=== PATIENT | female | born 1975 | race African-American/Black ===

== ENCOUNTER 2017-07-17 14:47 | Emergency (ER) | payer SELFPAY ==
--- NOTE | 2017-07-17 15:46 | RAD ---
AP VIEW CHEST: INDICATIONS: Flu-like symptoms. COMPARISON: 03/09/2016 FINDINGS: There is mid cardiomegaly. No focal consolidation or pleural effusion is noted. No pneumothorax is demonstrated. No acute osseous abnormality is evident. IMPRESSION: Mild cardiomegaly. The extent of the cardiomegaly appears similar to the comparison examination, whe n taking into account slight differences in technique. POS: [facility]
== END 2017-07-17 15:59 | disposition home or self-care (01) ==
LOC: ERS 14:47
DX: J06.9 Acute upper respiratory infection, unspecified (principal); I10 Essential (primary) hypertension; F17.210 Nicotine dependence, cigarettes, uncomplicated; Z79.899 Other long term (current) drug therapy
CPT/HCPCS: 71045; 87804

== ENCOUNTER 2017-07-18 01:38 | Inpatient (IN) | payer SELFPAY ==
[2017-07-18] MEDS ORDERED: predniSONE 20 MG TAB ONE (03:40)
[2017-07-18 04:46] LABS: #Eosinphils 0.2 thou/uL (0.0-0.7); #Lymphocytes 0.9 thou/uL (1.20-3.40); #Monocytes 0.4 thou/uL (0.11-0.59); #Neutrophils 5.5 thou/uL (1.40-6.50); %Basophils 0.6 % (0.0-1.0); %Eosinophils 2.8 % (0.0-10.0); %Lymphocytes 12.9 % (21.0-51.0); %Neutrophils 77.7 % (42.0-75.0); Mean Corpuscular HGB CONC 33.2 g/dL (32.0-36.0); Mean Corpuscular Hemoglobin 28.2 pg (27.0-31.0); Mean Corpuscular Volume 85.1 fl (81.0-99.0); Mean Platelet Volume 7.5 fL (7.4-10.4); Platelet Count 337 thou/uL (130-400); RBC Distribution Width 14.9 % (11.5-14.5); Red Blood Cell (RBC) Count 3.89 mill/uL (4.20-5.40); White Blood Cell (WBC) Count 7.1 thou/uL (4.8-10.8)
[2017-07-18 05:03] LABS: ALT (SGPT) 19 U/L (8-55); AST (SGOT) 18 U/L (5-34); Albumin 3.9 g/dL (3.5-5.0); Alkaline Phosphatase 71 U/L (40-150); Anion Gap 13 mmol/L (10-20); BUN (Urea Nitrogen) 14 mg/dL (7.0-18.7); Bilirubin, Total 0.3 mg/dL (0.2-1.2); Calc. Creatinine Clearance 0 mL/min (70-130); Calcium 8.6 mg/dL (7.8-10.44); Carbon Dioxide 21 mmol/L (22-29); Chloride 105 mmol/L (98-107); Estimated GFR-MDRD Greater than 90; Globulin 3.5 g/dL (2.4-3.5); Glucose 114 mg/dL (70-105); Potassium 3.4 mmol/L (3.5-5.1); Protein, Total 7.4 g/dL (6.0-8.3); Sodium 136 mmol/L (136-145)
[2017-07-18 06:00] VITALS: BMI 28.3
[2017-07-18] MEDS ORDERED: Acetaminophen 325 MG TAB PO PRN ×2 (06:17→12:04)
[2017-07-18] MEDS ORDERED: Ondansetron ODT 4 MG TAB SL PRN (06:17)
[2017-07-18] MEDS ORDERED: Ondansetron HCl/PF 4 MG/2 ML Vial IVP PRN (06:17)
[2017-07-18] MEDS ORDERED: Potassium Chloride 20 MEQ TAB PO SCH (10:00)
[2017-07-18] MEDS ORDERED: hydrALAZINE 20 MG/ML VIAL SLOW IVP PRN (10:32)
[2017-07-18] MEDS ORDERED: Lisinopril 10 MG TAB PO SCH (10:45)
[2017-07-18] MEDS ORDERED: methylPREDNISolone Sod Succ/PF 125 MG/2 ML VIAL IVP SCH (12:00)
[2017-07-18] MEDS ORDERED: cefTRIAXone\\ROCEPHIN 1 GM in Sodium Chloride 0.9% 100 ML IVPB SCH (12:15)
[2017-07-18] MEDS ORDERED: Calcium Carbonate 500 MG ChewTAB PO PRN (12:19)
[2017-07-18] MEDS ORDERED: Milk Of Magnesia 30 ML UDCUP PO PRN (12:19)
[2017-07-18] MEDS ORDERED: Senokot 8.6 MG TAB PO PRN (12:19)
[2017-07-18] MEDS: cefTRIAXone\\ROCEPHIN 1 GM, Syringe 0.4 ML in Sterile Water 9.6 ML SLOW IVP SCH (13:46)
[2017-07-18] MEDS: Azithromycin 500 MG in Sodium Chloride 0.9% 250 ML 250 ML IVPB SCH (13:46)
[2017-07-18] MEDS: Ibuprofen 200 MG TAB PO PRN ×2 (14:50→20:14)
[2017-07-18] MEDS: predniSONE 20 MG TAB PO SCH (17:25)
[2017-07-18] MEDS: Acetaminophen 325 MG TAB PO PRN (17:25)
--- NOTE | 2017-07-18 17:37 | PDOC.PN ---
- Subjective Encounter Start Date: 07/18/17 Encounter Start Time: 11:00 Patient seen and examined. Note dictated. - Objective Resuscitation Status: Resuscitation Status FULL:Full Resuscitation MAR Reviewed: Yes Vital Signs & Weight: Vital Signs (12 hours) Temp Pulse Resp BP Pulse Ox 07/18/17 16:23 98.0 F 84 16 149/88 H 92 L 07/18/17 11:12 98.2 F 85 18 147/95 H 94 L 07/18/17 09:40 79 14 96 07/18/17 08:00 98.0 F 79 14 92 L 07/18/17 07:16 98.0 F 79 18 152/95 H 92 L 07/18/17 06:40 84 16 95 07/18/17 05:45 97.8 F 82 22 H 153/97 H 93 L Weight Weight 170 lb Result Diagrams: 07/18/17 04:27 07/18/17 04:27 Radiology Reviewed by me: Yes (?Basilar infiltrate) Phys Exam - Physical Examination Intermittent coughing spell HEENT: PERRLA, moist MMs, sclera anicteric Neck: no nodes, no JVD, supple Respiratory: wheezing present Scat rhonchi/rales at bases, Some accessory muscle use Cardiovascular: RRR, no rub S1S2 +, No heaves/pulsations Gastrointestinal: soft, non-tender, no distention, positive bowel sounds Musculoskeletal: no edema, pulses present Neurological: non-focal, normal sensation, moves all 4 limbs Psychiatric: normal affect, A&O x 3 Skin: no rash Dx/Plan - Plan * . Review of Systems - Review of Systems Constitutional: fever. negative: chills, sweats, weakness, malaise, other Eyes: negative: Pain, Vision Change, Conjunctivae Inflammation, Eyelid Inflammation, Redness, Other ENT: Nose Congestion. negative: Ear Pain, Ear Discharge, Nose Pain, Nose Discharge, Mouth Pain, Mouth Swelling, Throat Pain, Throat Swelling, Other Respiratory: Cough, Dry, Shortness of Breath, SOB with Excertion, Sputum, Wheezing. negative: Hemoptysis, Pleuritic Pain Cardiovascular: negative: chest pain, palpitations, orthopnea, paroxysmal nocturnal dyspnea, edema, light headedness, other Gastrointestinal: negative: Nausea, Vomiting, Abdominal Pain, Diarrhea, Constipation, Melena, Hematochezia, Other Genitourinary: negative: Dysuria, Frequency, Incontinence, Hematuria, Retention , Other Musculoskeletal: negative: Neck Pain, Shoulder Pain, Arm Pain, Back Pain, Hand Pain, Leg Pain, Foot Pain, Other Skin: negative: Rash, Lesions, Eduardo, Bruising, Other Neurological: negative: Weakness, Numbness, Incoordination, Change in Speech, Confusion, Seizures, Other - Medications/Allergies Allergies/Adverse Reactions: Allergies Allergy/AdvReac Type Severity Reaction Status Date / Time No Known Allergies Allergy Unverified 07/18/17 05:58 Medications: Current Medications Acetaminophen (Tylenol) 650 mg PO Q4H PRN PRN Reason: Headache/Fever or Mild Pain Last Admin: 07/18/17 17:25 Dose: 650 mg Albuterol/Ipratropium (Duoneb) 3 ml NEB [id number] [facility] Last Admin: 07/18/17 15:44 Dose: 3 ml Albuterol/Ipratropium (Duoneb) 3 ml NEB [id number] PRN PRN Reason: SOB &/or Wheezing Calcium Carbonate (Tums) 1,000 mg PO Q4H PRN PRN Reason: Heartburn or Indigestion Famotidine (Pepcid) 20 mg PO BID [facility] Guaifenesin (Mucinex) 600 mg PO Q12HR [facility] Hydralazine HCl (Apresoline) 10 mg SLOW IVP Q4H PRN PRN Reason: SBP Greater Than 180 Azithromycin 500 mg/ Sodium (Chloride) 250 mls @ 250 mls/hr IVPB Q24HR [facility] Last Admin: 07/18/17 13:46 Dose: 250 mls Ceftriaxone Sodium 1 gm/ (Syringe 0.4 ml/ Sterile Water) 10 mls @ 120 mls/hr SLOW IVP Q24HR [facility] Last Admin: 07/18/17 13:46 Dose: 10 mls Ibuprofen (Motrin) 400 mg PO Q6H PRN PRN Reason: Pain Last Admin: 07/18/17 14:50 Dose: 400 mg Lisinopril (Zestril) 10 mg PO DAILY [facility] Magnesium Hydroxide (Milk Of Magnesium) 30 ml PO DAILYPRN PRN PRN Reason: Constipation Prednisone (Prednisone) 20 mg PO BID-[facility] Last Admin: 07/18/17 17:25 Dose: 20 mg Senna (Senokot) 2 tab PO HSPRN PRN PRN Reason: Constipation Sodium Chloride (Flush - Normal Saline) 10 ml IVF Q12HR [facility] Sodium Chloride (Flush - Normal Saline) 10 ml IVF PRN PRN PRN Reason: Saline Flush
--- NOTE | 2017-07-18 18:06 | HP ---
DATE OF ADMISSION: 07/18/2017 PRIMARY CARE PHYSICIAN: [facility]. REASON FOR ADMISSION/CHIEF COMPLAINT: Fever, cough, and shortness of breath of 3 days' duration.. HISTORY OF PRESENT ILLNESS: The patient is a 41-year-old female with reactive airway disease, who pr esented to the emergency room with fever, cough, nasal congestion over the last 3 days. Over the las t 3-4 days, the patient developed gradual worsening shortness of breath along with chest congestion. She also felt feverish; however, did not record her temperature. One of the coworker was recently d iagnosed with pneumonia. She denies any orthopnea, paroxysmal nocturnal dyspnea, recent immobilizati on, travel, chest pain or palpitations. In the emergency room, her initial vital signs showed temperature 98.2, respirations 20, pulse rate o f 99 with a blood pressure 147/96 with O2 saturation 94% on room air. Please note that patient was s een in the emergency room yesterday for similar complaint and was discharged home on a Z-MINA without much relief. A chest x-ray was negative for infiltrate. She received prednisone along with nebulize r treatments in the emergency room. PAST MEDICAL HISTORY: 1. Reactive airway disease. 2. Hypertension. PAST SURGICAL HISTORY: Partial removal of cervix. ALLERGIES: No known drug allergies. CURRENT HOME MEDICATIONS: Lisinopril 10 mg p.o. daily. SOCIAL HISTORY: The patient smokes less than half pack a day. Drinks alcohol socially, no drug use. FULL CODE, makes her own decisions. FAMILY HISTORY: Hypertension runs in her family. REVIEW OF SYSTEMS: Please refer to my progress note. PHYSICAL EXAMINATION: Please refer to my progress note. LABORATORY DATA: Please refer to my progress note. IMPRESSION AND PLAN: 1. Atypical pneumonia. 2. Hypokalemia. 3. Ongoing tobacco abuse. 4. Chronic anemia. 5. Hypertension. PLAN: 1. The patient will be monitored on the medical floor. We will start her on ceftriaxone and azithro mycin. We will add low dose steroid. We will repeat labs in a.m. Replace potassium, nebulizer анна tment every 4 hourly and p.r.n. 2. Deep venous thrombosis prophylaxis. DISPOSITION: Probably in 1-2 days based on her improvement. Plan of care was discussed with the patient in detail. She stated understanding.
[2017-07-18] MEDS: guaiFENesin ER 600 MG TAB PO SCH (20:14)
[2017-07-18] MEDS: Famotidine 20 MG TAB PO SCH (20:15)
[2017-07-19] MEDS: Ibuprofen 200 MG TAB PO PRN ×2 (03:25→15:32)
[2017-07-19 06:04] LABS: Potassium 4.2 mmol/L (3.5-5.1)
[2017-07-19] MEDS ORDERED: Morphine 4 MG/ML VIAL SLOW IVP SCH (06:30)
[2017-07-19] MEDS: guaiFENesin ER 600 MG TAB PO SCH ×2 (08:37→19:18)
[2017-07-19] MEDS: predniSONE 20 MG TAB PO SCH ×2 (08:37→17:11)
[2017-07-19] MEDS: Famotidine 20 MG TAB PO SCH ×2 (08:37→19:18)
[2017-07-19] MEDS: Lisinopril 10 MG TAB PO SCH (08:38)
[2017-07-19] MEDS: cefTRIAXone\\ROCEPHIN 1 GM, Syringe 0.4 ML in Sterile Water 9.6 ML SLOW IVP SCH (12:21)
[2017-07-19] MEDS: Azithromycin 500 MG in Sodium Chloride 0.9% 250 ML 250 ML IVPB SCH (12:22)
[2017-07-19] MEDS: Acetaminophen 325 MG TAB PO PRN (19:18)
--- NOTE | 2017-07-19 21:09 | PDOC.PN ---
- Subjective Encounter Start Date: 07/19/17 Encounter Start Time: 12:30 Patient seen and examined for pneumonia. No new complaints. No overnight events - Objective Resuscitation Status: Resuscitation Status FULL:Full Resuscitation MAR Reviewed: Yes Vital Signs & Weight: Vital Signs (12 hours) Temp Pulse Resp BP Pulse Ox 07/19/17 19:26 98.8 F 93 18 98 07/19/17 19:22 98.8 F 93 18 143/95 H 98 07/19/17 19:08 86 12 94 L 07/19/17 13:56 88 12 95 Weight Weight 170 lb I&O: 07/18/17 07/19/17 07/20/17 06:59 06:59 06:59 Intake Total 710 920 Balance 710 920 Result Diagrams: 07/18/17 04:27 07/19/17 05:28 Radiology Reviewed by me: Yes (CXR - ?Pneumonia) Phys Exam - Physical Examination Constitutional: NAD Respiratory: wheezing present Rales at left base with scat rhonci, Cardiovascular: RRR, no significant murmur, no rub S1S2+ Gastrointestinal: soft, non-tender, no distention, positive bowel sounds Musculoskeletal: no edema Neurological: non-focal, normal sensation, moves all 4 limbs Psychiatric: normal affect, A&O x 3 Dx/Plan - Plan continue antibiotics, respiratory therapy, DVT proph w/SCDs IMPRESSION: 1. Atypical pneumonia. 2. Hypokalemia. 3. Ongoing tobacco abuse. 4. Chronic anemia. 5. Hypertension. PLAN: * Will cont Nebs/Atbx/Steroids overnight * Possible dc in AM * Counselled to quit smoking * Will consider adding amlodipine in AM if BP high Review of Systems - Review of Systems Gastrointestinal: negative: Nausea, Vomiting, Abdominal Pain, Diarrhea, Constipation, Melena, Hematochezia, Other Genitourinary: negative: Dysuria, Frequency, Incontinence, Hematuria, Retention , Other - Medications/Allergies Allergies/Adverse Reactions: Allergies Allergy/AdvReac Type Severity Reaction Status Date / Time No Known Allergies Allergy Unverified 07/18/17 05:58 Medications: Current Medications Acetaminophen (Tylenol) 650 mg PO Q4H PRN PRN Reason: Headache/Fever or Mild Pain Last Admin: 07/19/17 19:18 Dose: 650 mg Albuterol/Ipratropium (Duoneb) 3 ml NEB [id number] [facility] Last Admin: 07/19/17 19:08 Dose: 3 ml Albuterol/Ipratropium (Duoneb) 3 ml NEB [id number] PRN PRN Reason: SOB &/or Wheezing Calcium Carbonate (Tums) 1,000 mg PO Q4H PRN PRN Reason: Heartburn or Indigestion Famotidine (Pepcid) 20 mg PO BID [facility] Last Admin: 07/19/17 19:18 Dose: 20 mg Guaifenesin (Mucinex) 600 mg PO Q12HR [facility] Last Admin: 07/19/17 19:18 Dose: 600 mg Hydralazine HCl (Apresoline) 10 mg SLOW IVP Q4H PRN PRN Reason: SBP Greater Than 180 Azithromycin 500 mg/ Sodium (Chloride) 250 mls @ 250 mls/hr IVPB Q24HR [facility] Last Admin: 07/19/17 12:22 Dose: 250 mls Ceftriaxone Sodium 1 gm/ (Syringe 0.4 ml/ Sterile Water) 10 mls @ 120 mls/hr SLOW IVP Q24HR [facility] Last Admin: 07/19/17 12:21 Dose: 10 mls Ibuprofen (Motrin) 400 mg PO Q6H PRN PRN Reason: Pain Last Admin: 07/19/17 15:32 Dose: 400 mg Lisinopril (Zestril) 10 mg PO DAILY [facility] Last Admin: 07/19/17 08:38 Dose: 10 mg Magnesium Hydroxide (Milk Of Magnesium) 30 ml PO DAILYPRN PRN PRN Reason: Constipation Prednisone (Prednisone) 20 mg PO BID-[facility] Last Admin: 07/19/17 17:11 Dose: 20 mg Senna (Senokot) 2 tab PO HSPRN PRN PRN Reason: Constipation Sodium Chloride (Flush - Normal Saline) 10 ml IVF Q12HR [facility] Last Admin: 07/19/17 19:19 Dose: 10 ml Sodium Chloride (Flush - Normal Saline) 10 ml IVF PRN PRN PRN Reason: Saline Flush Last Admin: 07/19/17 06:31 Dose: 10 ml
[2017-07-20 07:49] VITALS: TEMP 98.1
[2017-07-20] MEDS: predniSONE 20 MG TAB PO SCH (08:13)
[2017-07-20] MEDS: guaiFENesin ER 600 MG TAB PO SCH (08:13)
[2017-07-20] MEDS: Lisinopril 10 MG TAB PO SCH (08:13)
[2017-07-20] MEDS: Acetaminophen 325 MG TAB PO PRN (08:13)
[2017-07-20] MEDS: Famotidine 20 MG TAB PO SCH (08:13)
[2017-07-20 08:14] VITALS: BP 127/78
--- NOTE | 2017-07-20 10:42 | DIS ---
DATE OF DISCHARGE: 07/20/2017 DISCHARGE DISPOSITION: Home. FOLLOWUP: With [facility] in 1 week. DISCHARGE MEDICATIONS: Azithromycin 500 mg daily for the next 5 days, prednisone 20 mg daily for nex t 5 days, and lisinopril 10 mg daily. The patient was seen and examined on the day of discharge. Denies any new complaints. Wheezing has improved. BRIEF HOSPITAL COURSE: Patient is a 41-year-old female with reactive airway disease, who presented t o the hospital with fever, cough, and nasal congestion as well as shortness of breath with wheezing f or 3-4 days. Please refer to the history and physical dated 07/18/2017 for further details. The patient was admitted to the hospital with a diagnosis of atypical pneumonia. She showed good imp rovement with steroids, antibiotics, and nebulizer treatments. She will be discharged home with pred nisone and azithromycin. She does not want albuterol prescription due to the cost. She will follow up with her primary care physician. FINAL DIAGNOSES: 1. Atypical pneumonia. 2. Suspected asthma exacerbation secondary to #1. 3. Hypokalemia, replaced. Repeat potassium was 4.2 from 3.4. 4. Ongoing tobacco abuse. The patient was extensively counseled. 5. Chronic anemia. 6. Hypertension. Plan of care was discussed with the patient in detail and she stated understanding.
== END 2017-07-20 12:53 | disposition home or self-care (01) | DRG 194 ==
LOC: ERS 01:38 → T4-B 04:45
PROVIDERS: ADMIT Internal Medicine; ATTEND Internal Medicine
DX: J18.9 Pneumonia, unspecified organism (principal); J45.901 Unspecified asthma with (acute) exacerbation; E87.6 Hypokalemia; F17.210 Nicotine dependence, cigarettes, uncomplicated; D64.9 Anemia, unspecified; I10 Essential (primary) hypertension
CPT/HCPCS: 36415; 80053; 83735; 84132; 85025; 94640; 99406; A4216; J0456; J0696; J2270; J2930; J7050; J7506; J7620

== ENCOUNTER 2018-02-08 19:49 | Emergency (ER) | payer SELFPAY | END 2018-02-08 20:11 | disposition home or self-care (01) | LOC: ERS 19:49 | DX: L03.011 Cellulitis of right finger (principal); I10 Essential (primary) hypertension; F17.210 Nicotine dependence, cigarettes, uncomplicated; Z79.899 Other long term (current) drug therapy | CPT/HCPCS: 26010 ==

== ENCOUNTER 2018-07-18 23:07 | Emergency (ER) | payer SELFPAY | END 2018-07-18 23:43 | disposition home or self-care (01) | LOC: ERS 23:07 | DX: K02.9 Dental caries, unspecified (principal); I10 Essential (primary) hypertension; F17.210 Nicotine dependence, cigarettes, uncomplicated; Z79.899 Other long term (current) drug therapy | CPT/HCPCS: 99282 ==

== ENCOUNTER 2019-03-18 21:50 | Emergency (ER) | payer SELFPAY | END 2019-03-18 23:23 | disposition left against medical advice (07) | LOC: ERS 21:50 | DX: Z53.21 Procedure and treatment not carried out due to patient leaving prior to being seen by health care provider (principal) ==

== ENCOUNTER 2020-04-15 18:16 | Emergency (ER) | payer SELFPAY | END 2020-04-15 19:23 | disposition home or self-care (01) | LOC: ERS 18:16 | DX: I10 Essential (primary) hypertension (principal); F17.210 Nicotine dependence, cigarettes, uncomplicated; Z79.899 Other long term (current) drug therapy | CPT/HCPCS: 99283 ==

== ENCOUNTER 2020-07-17 11:09 | Emergency (ER) | payer SELFPAY ==
[2020-07-17] MEDS ORDERED: Morphine 4 MG/ML VIAL ONE (11:23)
[2020-07-17 11:48] LABS: #Eosinphils 0.1 thou/uL (0.0-0.7); #Lymphocytes 1.6 thou/uL (1.20-3.40); #Monocytes 0.3 thou/uL (0.11-0.59); #Neutrophils 4.6 thou/uL (1.40-6.50); %Basophils 0.3 % (0.0-1.0); %Eosinophils 1.2 % (0.0-10.0); %Lymphocytes 23.8 % (21.0-51.0); %Monocytes 4.7 % (0.0-10.0); %Neutrophils 70.1 % (42.0-75.0); Hemoglobin 8.2 g/dL (12.0-16.0); Mean Corpuscular HGB CONC 29.8 g/dL (32.0-36.0); Mean Corpuscular Hemoglobin 22.6 pg (27.0-31.0); Mean Corpuscular Volume 76.1 fL (78.0-98.0); Mean Platelet Volume 8.3 fL (7.4-10.4); Platelet Count 321 thou/uL (130-400); RBC Distribution Width 18.5 % (11.5-14.5); Red Blood Cell (RBC) Count 3.64 mill/uL (4.20-5.40); White Blood Cell (WBC) Count 6.5 thou/uL (4.8-10.8)
[2020-07-17 11:51] LABS: ALT (SGPT) 14 U/L (8-55); AST (SGOT) 18 U/L (5-34); Albumin 3.7 g/dL (3.5-5.0); Alkaline Phosphatase 68 U/L (40-110); Anion Gap 11 mmol/L (10-20); BUN (Urea Nitrogen) 11 mg/dL (7.0-18.7); Bilirubin, Total 0.2 mg/dL (0.2-1.2); Calc. Creatinine Clearance 0 mL/min (70-130); Calcium 8.5 mg/dL (7.8-10.44); Carbon Dioxide 24 mmol/L (22-29); Chloride 107 mmol/L (98-107); Globulin 3.4 g/dL (2.4-3.5); Glucose 110 mg/dL (70-105); Lipase 49 U/L (8-78); Potassium 4.1 mmol/L (3.5-5.1); Protein, Total 7.1 g/dL (6.0-8.3); Sodium 138 mmol/L (136-145)
[2020-07-17 12:12] LABS: Band 2 % (5-11); Eosinophils 1 % (0-10); Hypochromia SLIGHT = 6-15 cells (100X) (0-5/hpf); Lymphocytes 26 % (21-51); MDiff Complete? YES; Microcytosis SLIGHT = 6-15 cells (100X) (0-5/hpf); Monocytes 3 % (0-10); Neutrophil 68 % (42-75); Platelet Morphology Comment Appears Adequate; Polychromasia SLIGHT = 2-3 cells (100X) (0-2/hpf)
[2020-07-17] MEDS ORDERED: Esmolol 2,500 MG/250 ML 250 ML ONE (13:04)
[2020-07-17 14:57] LABS: SARS-CoV-2 NAA Rapid Test Not Detected (NotDetected)
[2020-07-17] MEDS ORDERED: Iopamidol-370 76% 500 ML 1 ML ONE (15:13)
== END 2020-07-17 14:33 | disposition short-term general hospital (02) ==
LOC: ERS 11:09
DX: I71.00 Dissection of unspecified site of aorta (principal); Z20.822 Contact with and (suspected) exposure to COVID-19; Z79.899 Other long term (current) drug therapy; I10 Essential (primary) hypertension; F17.210 Nicotine dependence, cigarettes, uncomplicated
CPT/HCPCS: 36430; 71275; 80053; 83690; 84484; 85025; 86850; 86900; 86901; 93005; 96365; 96375; J2270; P9016; Q9967; U0002

== ENCOUNTER 2021-02-22 20:53 | Emergency (ER) | payer SELFPAY | END 2021-02-22 21:44 | disposition home or self-care (01) | LOC: ERS 20:53 | DX: R23.4 Changes in skin texture (principal); I10 Essential (primary) hypertension; F17.210 Nicotine dependence, cigarettes, uncomplicated | CPT/HCPCS: 99283 ==

== ENCOUNTER 2021-03-29 09:46 | Emergency (ER) | payer SELFPAY ==
[2021-03-29] MEDS ORDERED: Morphine 4 MG/ML VIAL ONE (10:49)
[2021-03-29] MEDS ORDERED: Acetaminophen 325 MG TAB ONE (10:49)
[2021-03-29 11:28] LABS: #Basophils 0.1 thou/uL (0.0-0.2); #Lymphocytes 0.2 thou/uL (1.20-3.40); #Monocytes 0.5 thou/uL (0.11-0.59); #Neutrophils 9.3 thou/uL (1.40-6.50); %Basophils 0.5 % (0.0-1.0); %Eosinophils 0.3 % (0.0-10.0); %Lymphocytes 2.3 % (21.0-51.0); %Monocytes 4.6 % (0.0-10.0); %Neutrophils 92.2 % (42.0-75.0); Mean Corpuscular HGB CONC 31.4 g/dL (32.0-36.0); Mean Corpuscular Hemoglobin 24.6 pg (27.0-31.0); Mean Corpuscular Volume 78.5 fL (78.0-98.0); Mean Platelet Volume 8.3 fL (7.4-10.4); Platelet Count 282 thou/uL (130-400); RBC Distribution Width 16.1 % (11.5-14.5); Red Blood Cell (RBC) Count 3.63 mill/uL (4.20-5.40)
[2021-03-29 11:38] LABS: INR-International Normal Ratio 1.1; PTT 38.9 sec (22.9-36.1); Prothrombin Time 14.6 sec (12.0-14.7)
[2021-03-29 11:43] LABS: Anion Gap 13 mmol/L (10-20); BUN (Urea Nitrogen) 15 mg/dL (7.0-18.7); Calc. Creatinine Clearance 0 mL/min (70-130); Carbon Dioxide 18 mmol/L (22-29); Chloride 103 mmol/L (98-107); Potassium 3.7 mmol/L (3.5-5.1); Sodium 130 mmol/L (136-145)
[2021-03-29 11:44] LABS: ALT (SGPT) 25 U/L (8-55); AST (SGOT) 29 U/L (5-34); Albumin 3.8 g/dL (3.5-5.0); Alkaline Phosphatase 74 U/L (40-110); Bilirubin, Total 0.6 mg/dL (0.2-1.2); Calcium 8.9 mg/dL (7.8-10.44); Glucose 75 mg/dL (70-105); Protein, Total 7.8 g/dL (6.0-8.3)
[2021-03-29 13:06] LABS: Bilirubin Negative (Negative); Blood, Urine Negative (Negative); Clarity Clear (Clear); Glucose, Urine (Dipstick) Normal (Negative); Ketone, Urine 60 mg/dL (Negative); Leukocyte Negative Leu/uL (Negative); Nitrite Negative (Negative); Protein, Urine (Dipstick) 10 mg/dL (Neg-Trace); Specific Gravity, Urine 1.024 (1.002-1.036); Urobilinogen Normal mg/dL (Less than 2)
== END 2021-03-29 13:56 | disposition home or self-care (01) ==
LOC: ERS 09:46
DX: S20.212A Contusion of left front wall of thorax, initial encounter (principal); S09.90XA Unspecified injury of head, initial encounter; R10.812 Left upper quadrant abdominal tenderness; I10 Essential (primary) hypertension; I05.9 Rheumatic mitral valve disease, unspecified; F17.210 Nicotine dependence, cigarettes, uncomplicated; R79.1 Abnormal coagulation profile; Y04.0XXA Assault by unarmed brawl or fight, initial encounter
CPT/HCPCS: 36415; 70450; 80053; 81003; 85025; 85610; 85730; 96372; J2270

== ENCOUNTER 2021-04-21 10:47 | Emergency (ER) | payer SELFPAY ==
[2021-04-21 17:43] LABS: SARS-CoV-2 PCR by NAA Not Detected (NotDetected)
== END 2021-04-21 12:07 | disposition home or self-care (01) ==
LOC: ERS 10:47
DX: R63.0 Anorexia (principal); M79.10 Myalgia, unspecified site; R43.9 Unspecified disturbances of smell and taste; R50.9 Fever, unspecified; I10 Essential (primary) hypertension; F17.210 Nicotine dependence, cigarettes, uncomplicated; Z20.822 Contact with and (suspected) exposure to COVID-19; Z79.01 Long term (current) use of anticoagulants
CPT/HCPCS: 99284; U0003; U0005

== ENCOUNTER 2021-11-16 21:14 | Inpatient (IN) | payer SELFPAY ==
[2021-11-16 22:02] LABS: Hemoglobin 7.9 g/dL (12.0-16.0); Mean Corpuscular HGB CONC 29.8 g/dL (32.0-36.0); Mean Corpuscular Hemoglobin 21.7 pg (27.0-31.0); Mean Corpuscular Volume 72.8 fL (78.0-98.0); Mean Platelet Volume 10.7 fL (7.4-10.4); Platelet Count 246 thou/uL (130-400); RBC Distribution Width 19.2 % (11.5-14.5); Red Blood Cell (RBC) Count 3.62 mill/uL (4.20-5.40); White Blood Cell (WBC) Count 5.6 thou/uL (4.8-10.8)
[2021-11-16 22:12] LABS: ALT (SGPT) 20 U/L (8-55); AST (SGOT) 18 U/L (5-34); Acetaminophen Less than 10.0 mcg/mL (10.0-30.0); Alcohol 193 mg/dL (Less than 10); Alkaline Phosphatase 60 U/L (40-110); Anion Gap 14 mmol/L (10-20); BUN (Urea Nitrogen) 8 mg/dL (7.0-18.7); Bilirubin, Total 0.2 mg/dL (0.2-1.2); Calc. Creatinine Clearance 0 mL/min (70-130); Calcium 8.9 mg/dL (7.8-10.44); Carbon Dioxide 18 mmol/L (22-29); Chloride 110 mmol/L (98-107); Estimated GFR 100; Globulin 3.7 g/dL (2.4-3.5); Glucose 90 mg/dL (70-105); Potassium 3.4 mmol/L (3.5-5.1); Protein, Total 7.7 g/dL (6.0-8.3); Salicylate Less than 8.0 mg/dL (15.0-30.0); Sodium 139 mmol/L (136-145)
[2021-11-16 22:13] LABS: INR-International Normal Ratio 1.1; PTT 35.5 sec (22.9-36.1)
[2021-11-16 22:21] LABS: BHCG - Serum Negative (NEGATIVE); Pregs Control Background? CLEAR/WHITE (CLR/WHITE); Pregs Control Bar Appear? YES (CONTROL BAR)
[2021-11-16 22:24] LABS: #Lymphocytes 1.5 thou/uL (1.20-3.40); #Monocytes 0.3 thou/uL (0.11-0.59); #Neutrophils 3.8 thou/uL (1.40-6.50); %Basophils 0.7 % (0.0-1.0); %Eosinophils 0.5 % (0.0-10.0); %Lymphocytes 26.6 % (21.0-51.0); %Monocytes 4.6 % (0.0-10.0); %Neutrophils 67.7 % (42.0-75.0); Anisocytosis SLIGHT = 6-15 cells (100X) (0-5/hpf); Hypochromia SLIGHT = 6-15 cells (100X) (0-5/hpf); MDiff Complete? YES; Microcytosis SLIGHT = 6-15 cells (100X) (0-5/hpf); Schistocytes SLIGHT = 2-5 cells (100X) (0-1/hpf)
[2021-11-16 23:00] LABS: SARS-CoV-2 NAA Rapid Test Not Detected (NotDetected)
[2021-11-17 00:06] LABS: Hemoglobin A1c 4.8 % (4.0-6.0)
[2021-11-17 00:56] VITALS: BMI 23.4
[2021-11-17] MEDS ORDERED: Potassium Chloride 20 MEQ TAB PO SCH (01:00)
[2021-11-17] MEDS ORDERED: Acetaminophen 325 MG TAB PO SCH (05:00)
[2021-11-17 05:08] LABS: INR-International Normal Ratio 1.1; Prothrombin Time 14.8 sec (12.0-14.7)
[2021-11-17 05:19] LABS: ALT (SGPT) 18 U/L (8-55); AST (SGOT) 18 U/L (5-34); Albumin 3.6 g/dL (3.5-5.0); Alkaline Phosphatase 55 U/L (40-110); Anion Gap 14 mmol/L (10-20); BUN (Urea Nitrogen) 7 mg/dL (7.0-18.7); Bilirubin, Total 0.2 mg/dL (0.2-1.2); Calc. Creatinine Clearance 98 mL/min (70-130); Calcium 8.5 mg/dL (7.8-10.44); Carbon Dioxide 19 mmol/L (22-29); Chloride 110 mmol/L (98-107); Estimated GFR 103; Globulin 3.6 g/dL (2.4-3.5); Glucose 78 mg/dL (70-105); Potassium 3.8 mmol/L (3.5-5.1); Protein, Total 7.2 g/dL (6.0-8.3); Sodium 139 mmol/L (136-145)
[2021-11-17 05:32] LABS: Hemoglobin 7.4 g/dL (12.0-16.0); Hypochromia MODERATE=16-30 cells (100X) (0-5/hpf); Lymphocytes 36 % (21-51); MDiff Complete? YES; Mean Corpuscular HGB CONC 31.2 g/dL (32.0-36.0); Mean Corpuscular Hemoglobin 22.6 pg (27.0-31.0); Mean Corpuscular Volume 72.7 fL (78.0-98.0); Mean Platelet Volume 11.5 fL (7.4-10.4); Microcytosis MODERATE=15-30 cells (100X) (0-5/hpf); Monocytes 5 % (0-10); Neutrophil 59 % (42-75); Platelet Count 230 thou/uL (130-400); Platelet Morphology Comment Appears Adequate; RBC Distribution Width 19.4 % (11.5-14.5); Red Blood Cell (RBC) Count 3.27 mill/uL (4.20-5.40); White Blood Cell (WBC) Count 6.2 thou/uL (4.8-10.8)
[2021-11-17] MEDS: Lisinopril 10 MG TAB PO SCH (10:44)
[2021-11-17 11:37] LABS: Bacteria/HPF 2+ HPF (None Seen); Bilirubin Negative (Negative); Blood, Urine Negative (Negative); Clarity Turbid (Clear); Glucose, Urine (Dipstick) Normal (Negative); Ketone, Urine Negative (Negative); Leukocyte 25 Leu/uL (Negative); Nitrite 2+ (Negative); Protein, Urine (Dipstick) Negative (Neg-Trace); RBC/HPF 0-3 HPF (0-3); Specific Gravity, Urine 1.021 (1.002-1.036); Squamous Epithelial 0-3 HPF (0-3); Urobilinogen Normal mg/dL (Less than 2); pH, Urine 6.5 (5.0-9.0)
[2021-11-17 16:34] LABS: INR-International Normal Ratio 1.6; PTT 41.3 sec (22.9-36.1); Prothrombin Time 19.1 sec (12.0-14.7)
[2021-11-17] MEDS ORDERED: Melatonin 3 MG TAB PO SCH (21:00)
[2021-11-17 21:33] LABS: INR-International Normal Ratio 1.9; Prothrombin Time 22.1 sec (12.0-14.7)
[2021-11-17 21:34] LABS: PTT 44.4 sec (22.9-36.1)
[2021-11-17] MEDS: Nitrofurantoin Monohyd/M-Cryst 100 MG CAP PO SCH (21:40)
[2021-11-17] MEDS: Enoxaparin Sodium 60 MG/0.6 ML SYRINGE SC SCH (21:40)
[2021-11-18 04:49] LABS: #Eosinphils 0.1 thou/uL (0.0-0.7); #Lymphocytes 2.4 thou/uL (1.20-3.40); #Monocytes 0.5 thou/uL (0.11-0.59); #Neutrophils 3.3 thou/uL (1.40-6.50); %Basophils 0.6 % (0.0-1.0); %Eosinophils 1.9 % (0.0-10.0); %Lymphocytes 37.6 % (21.0-51.0); %Monocytes 7.8 % (0.0-10.0); %Neutrophils 52.1 % (42.0-75.0); Hemoglobin 7.9 g/dL (12.0-16.0); Mean Corpuscular HGB CONC 29.5 g/dL (32.0-36.0); Mean Corpuscular Hemoglobin 21.7 pg (27.0-31.0); Mean Corpuscular Volume 73.4 fL (78.0-98.0); Mean Platelet Volume 10.6 fL (7.4-10.4); Platelet Count 224 thou/uL (130-400); RBC Distribution Width 19.2 % (11.5-14.5); Red Blood Cell (RBC) Count 3.66 mill/uL (4.20-5.40); White Blood Cell (WBC) Count 6.3 thou/uL (4.8-10.8)
[2021-11-18 05:12] LABS: ALT (SGPT) 19 U/L (8-55); AST (SGOT) 18 U/L (5-34); Albumin 3.6 g/dL (3.5-5.0); Alkaline Phosphatase 64 U/L (40-110); Anion Gap 12 mmol/L (10-20); BUN (Urea Nitrogen) 15 mg/dL (7.0-18.7); Bilirubin, Total 0.2 mg/dL (0.2-1.2); Calc. Creatinine Clearance 97 mL/min (70-130); Calcium 8.8 mg/dL (7.8-10.44); Carbon Dioxide 21 mmol/L (22-29); Chloride 107 mmol/L (98-107); Estimated GFR 102; Globulin 3.6 g/dL (2.4-3.5); Glucose 94 mg/dL (70-105); Potassium 3.9 mmol/L (3.5-5.1); Protein, Total 7.2 g/dL (6.0-8.3); Sodium 136 mmol/L (136-145)
[2021-11-18] MEDS: Enoxaparin Sodium 60 MG/0.6 ML SYRINGE SC SCH (09:24)
[2021-11-18] MEDS: Nitrofurantoin Monohyd/M-Cryst 100 MG CAP PO SCH ×2 (09:24→21:12)
[2021-11-18] MEDS: Lisinopril 10 MG TAB PO SCH (09:24)
[2021-11-18 09:43] LABS: PTT 37.2 sec (22.9-36.1)
[2021-11-18 09:44] LABS: Prothrombin Time 31.4 sec (12.0-14.7)
[2021-11-18] MEDS ORDERED: Lisinopril 10 MG TAB PO SCH (09:44)
[2021-11-18] MEDS ORDERED: Lisinopril 20 MG TAB PO SCH ×2 (10:00→10:45)
[2021-11-18 21:59] LABS: INR-International Normal Ratio 3.8; Prothrombin Time 38.4 sec (12.0-14.7)
[2021-11-18 22:00] LABS: PTT 52.6 sec (22.9-36.1)
[2021-11-19 04:42] LABS: Hemoglobin 8.1 g/dL (12.0-16.0); Mean Corpuscular HGB CONC 30.2 g/dL (32.0-36.0); Mean Corpuscular Hemoglobin 22.2 pg (27.0-31.0); Mean Corpuscular Volume 73.5 fL (78.0-98.0); Mean Platelet Volume 10.5 fL (7.4-10.4); Platelet Count 232 thou/uL (130-400); RBC Distribution Width 18.9 % (11.5-14.5); Red Blood Cell (RBC) Count 3.63 mill/uL (4.20-5.40); White Blood Cell (WBC) Count 5.9 thou/uL (4.8-10.8)
[2021-11-19 04:43] LABS: #Eosinphils 0.1 thou/uL (0.0-0.7); #Lymphocytes 2.2 thou/uL (1.20-3.40); #Monocytes 0.4 thou/uL (0.11-0.59); #Neutrophils 3.1 thou/uL (1.40-6.50); %Basophils 0.5 % (0.0-1.0); %Monocytes 6.2 % (0.0-10.0); %Neutrophils 53.3 % (42.0-75.0)
[2021-11-19 04:55] LABS: ALT (SGPT) 19 U/L (8-55); AST (SGOT) 19 U/L (5-34); Albumin 3.7 g/dL (3.5-5.0); Alkaline Phosphatase 62 U/L (40-110); Anion Gap 12 mmol/L (10-20); BUN (Urea Nitrogen) 13 mg/dL (7.0-18.7); Bilirubin, Total 0.2 mg/dL (0.2-1.2); Calc. Creatinine Clearance 96 mL/min (70-130); Calcium 8.7 mg/dL (7.8-10.44); Carbon Dioxide 24 mmol/L (22-29); Chloride 106 mmol/L (98-107); Estimated GFR 100; Globulin 3.7 g/dL (2.4-3.5); Glucose 115 mg/dL (70-105); Potassium 3.8 mmol/L (3.5-5.1); Protein, Total 7.4 g/dL (6.0-8.3); Sodium 138 mmol/L (136-145)
[2021-11-19] MEDS ORDERED: Lisinopril 20 MG TAB PO SCH (09:00)
[2021-11-19] MEDS: Nitrofurantoin Monohyd/M-Cryst 100 MG CAP PO SCH ×2 (09:19→21:07)
[2021-11-19] MEDS: Lisinopril 20 MG TAB PO SCH (09:19)
[2021-11-19 09:50] LABS: Prothrombin Time 40.3 sec (12.0-14.7)
[2021-11-19 09:51] LABS: PTT 54.4 sec (22.9-36.1)
[2021-11-19] MEDS ORDERED: Melatonin 3 MG TAB PO PRN (22:04)
[2021-11-19 22:09] LABS: INR-International Normal Ratio 3.9; PTT 54.8 sec (22.9-36.1); Prothrombin Time 38.9 sec (12.0-14.7)
[2021-11-20 05:17] LABS: #Eosinphils 0.1 thou/uL (0.0-0.7); #Lymphocytes 1.7 thou/uL (1.20-3.40); #Monocytes 0.4 thou/uL (0.11-0.59); #Neutrophils 4.2 thou/uL (1.40-6.50); %Basophils 0.6 % (0.0-1.0); %Eosinophils 1.6 % (0.0-10.0); %Lymphocytes 26.6 % (21.0-51.0); %Monocytes 6.1 % (0.0-10.0); %Neutrophils 65.2 % (42.0-75.0); Hemoglobin 8.2 g/dL (12.0-16.0); Mean Corpuscular Hemoglobin 21.9 pg (27.0-31.0); Mean Corpuscular Volume 72.9 fL (78.0-98.0); Mean Platelet Volume 11.7 fL (7.4-10.4); Platelet Count 230 thou/uL (130-400); RBC Distribution Width 19.2 % (11.5-14.5); Red Blood Cell (RBC) Count 3.77 mill/uL (4.20-5.40); White Blood Cell (WBC) Count 6.4 thou/uL (4.8-10.8)
[2021-11-20 05:37] LABS: ALT (SGPT) 22 U/L (8-55); AST (SGOT) 23 U/L (5-34); Albumin 3.7 g/dL (3.5-5.0); Alkaline Phosphatase 59 U/L (40-110); Anion Gap 14 mmol/L (10-20); BUN (Urea Nitrogen) 15 mg/dL (7.0-18.7); Bilirubin, Total 0.2 mg/dL (0.2-1.2); Calc. Creatinine Clearance 97 mL/min (70-130); Calcium 8.9 mg/dL (7.8-10.44); Carbon Dioxide 21 mmol/L (22-29); Chloride 105 mmol/L (98-107); Estimated GFR 102; Globulin 3.9 g/dL (2.4-3.5); Glucose 86 mg/dL (70-105); Potassium 4.1 mmol/L (3.5-5.1); Protein, Total 7.6 g/dL (6.0-8.3); Sodium 136 mmol/L (136-145)
[2021-11-20 08:48] LABS: INR-International Normal Ratio 3.5; PTT 58.1 sec (22.9-36.1); Prothrombin Time 36.3 sec (12.0-14.7)
[2021-11-20] MEDS: Lisinopril 20 MG TAB PO SCH (10:02)
[2021-11-20] MEDS: Nitrofurantoin Monohyd/M-Cryst 100 MG CAP PO SCH (10:02)
[2021-11-20 11:53] VITALS: BP 125/78; TEMP 96.1
== END 2021-11-20 18:05 | disposition home or self-care (01) | DRG 918 ==
LOC: ERS 21:14 → 2NO 22:47
PROVIDERS: ADMIT Student in an Organized Health Care Education/Training Program; ATTEND Family Medicine
DX: T45.512A Poisoning by anticoagulants, intentional self-harm, initial encounter (principal); N39.0 Urinary tract infection, site not specified; Z20.822 Contact with and (suspected) exposure to COVID-19; I10 Essential (primary) hypertension; F17.210 Nicotine dependence, cigarettes, uncomplicated; F10.129 Alcohol abuse with intoxication, unspecified; Y90.6 Blood alcohol level of 120-199 mg/100 ml; R35.0 Frequency of micturition; E87.6 Hypokalemia; D50.9 Iron deficiency anemia, unspecified; Z95.2 Presence of prosthetic heart valve; Z91.14 Patient's other noncompliance with medication regimen; Z79.899 Other long term (current) drug therapy
CPT/HCPCS: 36415; 71045; 80053; 80307; 81003; 81015; 83036; 84484; 84703; 85025; 85610; 85730; 86850; 86900; 86901; 93005; J1650

== ENCOUNTER 2022-01-12 11:49 | Emergency (ER) | payer SELFPAY | END 2022-01-12 13:15 | disposition home or self-care (01) | LOC: ERS 11:49 | DX: B34.9 Viral infection, unspecified (principal); I10 Essential (primary) hypertension; F17.210 Nicotine dependence, cigarettes, uncomplicated | CPT/HCPCS: 87804; 99284 ==

== ENCOUNTER 2022-02-23 16:38 | Emergency (ER) | payer SELFPAY ==
[2022-02-23 18:18] LABS: BHCG - Serum Negative (NEGATIVE); Pregs Control Background? CLEAR/WHITE (CLR/WHITE); Pregs Control Bar Appear? YES (CONTROL BAR)
[2022-02-23 18:20] LABS: #Eosinphils 0.1 thou/uL (0.0-0.7); #Lymphocytes 1.8 thou/uL (1.20-3.40); #Monocytes 0.4 thou/uL (0.11-0.59); #Neutrophils 4.1 thou/uL (1.40-6.50); %Basophils 0.3 % (0.0-1.0); %Eosinophils 1.7 % (0.0-10.0); %Lymphocytes 27.7 % (21.0-51.0); %Monocytes 6.5 % (0.0-10.0); %Neutrophils 63.9 % (42.0-75.0); Hemoglobin 8.1 g/dL (12.0-16.0); Mean Corpuscular HGB CONC 29.9 g/dL (32.0-36.0); Mean Corpuscular Hemoglobin 21.6 pg (27.0-31.0); Mean Corpuscular Volume 72.4 fl (78.0-98.0); Mean Platelet Volume 11.6 fL (7.4-10.4); Platelet Count 234 10x3/uL (130-400); RBC Distribution Width 19.1 % (11.5-14.5); Red Blood Cell (RBC) Count 3.75 mill/uL (4.20-5.40); White Blood Cell (WBC) Count 6.5 10x3/uL (4.8-10.8)
[2022-02-23 18:39] LABS: ALT (SGPT) 21 U/L (8-55); AST (SGOT) 19 U/L (5-34); Albumin 3.7 g/dL (3.5-5.0); Alkaline Phosphatase 66 U/L (40-110); Anion Gap 10 mmol/L (10-20); BUN (Urea Nitrogen) 20 mg/dL (7.0-18.7); Bilirubin, Total 0.2 mg/dL (0.2-1.2); Calc. Creatinine Clearance 0 mL/min (70-130); Calcium 8.7 mg/dL (7.8-10.44); Carbon Dioxide 22 mmol/L (22-29); Chloride 108 mmol/L (98-107); Estimated GFR 79; Globulin 3.6 g/dL (2.4-3.5); Glucose 91 mg/dL (70-105); Lipase 50 U/L (8-78); Potassium 4.1 mmol/L (3.5-5.1); Protein, Total 7.3 g/dL (6.0-8.3); Sodium 136 mmol/L (136-145)
[2022-02-23 19:00] LABS: Bilirubin Negative (Negative); Blood, Urine Negative (Negative); Clarity Clear (Clear); Glucose, Urine (Dipstick) Normal (Negative); Ketone, Urine Negative (Negative); Leukocyte Negative Leu/uL (Negative); Nitrite Negative (Negative); Protein, Urine (Dipstick) Negative (Neg-Trace); Specific Gravity, Urine 1.025 (1.002-1.036); Urobilinogen 3 mg/dL (Less than 2)
[2022-02-23 19:01] LABS: Anisocytosis SLIGHT = 6-15 cells (100X) (0-5/hpf); Hypochromia SLIGHT = 6-15 cells (100X) (0-5/hpf); Large Platelets SLIGHT; MDiff Complete? YES; Microcytosis SLIGHT = 6-15 cells (100X) (0-5/hpf); Ovalocytes SLIGHT = 2-5 cells (100X) (0-1/hpf); Platelet Morphology Comment Appears Adequate; Polychromasia SLIGHT = 2-3 cells (100X) (0-2/hpf); Target Cells SLIGHT = 2-5 cells (100X) (0-1/hpf)
[2022-02-23 19:29] LABS: SARS-CoV-2 NAA Rapid Test Not Detected (NotDetected)
== END 2022-02-23 19:24 | disposition home or self-care (01) ==
LOC: ERS 16:38
DX: R19.7 Diarrhea, unspecified (principal); R11.2 Nausea with vomiting, unspecified; I10 Essential (primary) hypertension; F17.210 Nicotine dependence, cigarettes, uncomplicated; Z79.899 Other long term (current) drug therapy; Z20.822 Contact with and (suspected) exposure to COVID-19; Z79.01 Long term (current) use of anticoagulants
CPT/HCPCS: 36415; 80053; 81003; 83605; 83690; 84703; 85025; 99284

== ENCOUNTER 2022-07-19 13:48 | Emergency (ER) | payer SELFPAY ==
[2022-07-19] MEDS ORDERED: Acetaminophen 325 MG TAB ONE (15:35)
[2022-07-19 15:56] LABS: #Eosinphils 0.1 thou/uL (0.0-0.7); #Lymphocytes 1.7 thou/uL (1.20-3.40); #Monocytes 0.4 thou/uL (0.11-0.59); #Neutrophils 3.7 thou/uL (1.40-6.50); %Basophils 0.4 % (0.0-1.0); %Eosinophils 2.1 % (0.0-10.0); %Lymphocytes 28.8 % (21.0-51.0); %Monocytes 6.5 % (0.0-10.0); %Neutrophils 62.2 % (42.0-75.0); Hemoglobin 7.4 g/dL (12.0-16.0); Mean Corpuscular HGB CONC 29.9 g/dL (32.0-36.0); Mean Corpuscular Hemoglobin 21.9 pg (27.0-31.0); Mean Corpuscular Volume 73.3 fl (78.0-98.0); Mean Platelet Volume 10.4 fL (7.4-10.4); Platelet Count 298 10x3/uL (130-400); RBC Distribution Width 19.5 % (11.5-14.5); Red Blood Cell (RBC) Count 3.37 mill/uL (4.20-5.40)
[2022-07-19 16:16] LABS: ALT (SGPT) 13 U/L (8-55); AST (SGOT) 16 U/L (5-34); Albumin 3.5 g/dL (3.5-5.0); Alkaline Phosphatase 59 U/L (40-110); Anion Gap 10 mmol/L (10-20); BUN (Urea Nitrogen) 14 mg/dL (7.0-18.7); Bilirubin, Total Less than 0.2 mg/dL (0.2-1.2); Calc. Creatinine Clearance 0 mL/min (70-130); Calcium 8.7 mg/dL (7.8-10.44); Carbon Dioxide 25 mmol/L (22-29); Chloride 109 mmol/L (98-107); Estimated GFR 91; Globulin 3.4 g/dL (2.4-3.5); Glucose 86 mg/dL (70-105); Potassium 4.2 mmol/L (3.5-5.1); Protein, Total 6.9 g/dL (6.0-8.3); Sodium 140 mmol/L (136-145)
[2022-07-19 16:43] LABS: Anisocytosis SLIGHT = 6-15 cells (100X) (0-5/hpf); Hypochromia SLIGHT = 6-15 cells (100X) (0-5/hpf); MDiff Complete? YES; Microcytosis SLIGHT = 6-15 cells (100X) (0-5/hpf); Ovalocytes SLIGHT = 2-5 cells (100X) (0-1/hpf); Platelet Morphology Comment Appears Adequate; Poikilocytosis SLIGHT = 6-15 cells (100X) (0-5/hpf); Polychromasia SLIGHT = 2-3 cells (100X) (0-2/hpf); Schistocytes SLIGHT = 2-5 cells (100X) (0-1/hpf); Target Cells SLIGHT = 2-5 cells (100X) (0-1/hpf); Tear Drops SLIGHT = 2-5 cells (100X) (0-1/hpf)
== END 2022-07-19 17:10 | disposition home or self-care (01) ==
LOC: ERS 13:48
DX: R51.9 Headache, unspecified (principal); I10 Essential (primary) hypertension; F17.210 Nicotine dependence, cigarettes, uncomplicated; Z79.01 Long term (current) use of anticoagulants; Z79.899 Other long term (current) drug therapy
CPT/HCPCS: 36415; 80053; 85025; 85610; 85730; 93005

== ENCOUNTER 2022-10-14 17:08 | Inpatient (IN) | payer SELFPAY ==
[2022-10-14 18:06] LABS: #Eosinphils 0.1 thou/uL (0.0-0.7); #Monocytes 0.4 thou/uL (0.11-0.59); #Neutrophils 5.9 thou/uL (1.40-6.50); %Basophils 0.2 % (0.0-1.0); %Eosinophils 0.9 % (0.0-10.0); %Lymphocytes 27.8 % (21.0-51.0); %Monocytes 4.8 % (0.0-10.0); %Neutrophils 66.2 % (42.0-75.0); Hemoglobin 7.2 g/dL (12.0-16.0); Mean Corpuscular HGB CONC 29.9 g/dL (32.0-36.0); Mean Corpuscular Hemoglobin 21.4 pg (27.0-31.0); Mean Corpuscular Volume 71.5 fl (78.0-98.0); Mean Platelet Volume 10.7 fL (7.4-10.4); Platelet Count 466 10x3/uL (130-400); RBC Distribution Width 19.8 % (11.5-14.5); Red Blood Cell (RBC) Count 3.37 mill/uL (4.20-5.40)
[2022-10-14 18:20] LABS: INR-International Normal Ratio 1.3; PTT 37.4 sec (22.9-36.1); Prothrombin Time 17.2 sec (12.0-14.7)
[2022-10-14 18:36] LABS: ALT (SGPT) 22 U/L (8-55); AST (SGOT) 35 U/L (5-34); Albumin 4.2 g/dL (3.5-5.0); Alkaline Phosphatase 66 U/L (40-110); Anion Gap 12 mmol/L (10-20); BUN (Urea Nitrogen) 16 mg/dL (7.0-18.7); Bilirubin, Total 0.2 mg/dL (0.2-1.2); Calc. Creatinine Clearance 0 mL/min (70-130); Calcium 8.9 mg/dL (7.8-10.44); Carbon Dioxide 23 mmol/L (22-29); Chloride 107 mmol/L (98-107); Estimated GFR 68; Globulin 3.8 g/dL (2.4-3.5); Glucose 92 mg/dL (70-105); Lipase 47 U/L (8-78); Sodium 138 mmol/L (136-145)
[2022-10-14 18:37] LABS: Anisocytosis SLIGHT = 6-15 cells HPF (0-5); CellaVision Operator ID LAB.KB; Hypochromia SLIGHT = 6-15 cells HPF (0-5); Microcytosis SLIGHT = 6-15 cells HPF (0-5); Ovalocytes SLIGHT = 2-5 cells HPF (0-1); Platelet Adequacy Comment Platelets Increased; Polychromasia SLIGHT = 2-3 cells HPF (0-2); Reflex for Review?? YES; Target Cells SLIGHT = 2-5 cells HPF (0-1)
[2022-10-14 18:51] LABS: CKMB 0.9 ng/mL (0-6.6)
[2022-10-14] MEDS ORDERED: Heparin 10,000 UNITS/ 10 ML VIAL ONE (22:44)
[2022-10-14] MEDS ORDERED: Heparin 25,000 units/D5W 500 ML ONE (22:44)
[2022-10-14 23:28] LABS: Troponin I 0.087 ng/mL (< 0.028)
[2022-10-14] MEDS ORDERED: Nicotine 14 MG PATCH TD SCH (23:45)
[2022-10-14] MEDS ORDERED: Heparin 25,000 units/D5W 500 ML IVPB SCH (23:45)
[2022-10-14] MEDS ORDERED: Heparin 10,000 UNITS/ 10 ML VIAL SLOW IVP SCH (23:45)
[2022-10-14] MEDS ORDERED: Senokot S 8.6-50 MG TAB PO PRN (23:49)
[2022-10-14] MEDS ORDERED: Ondansetron ODT 4 MG TAB PO PRN (23:49)
[2022-10-14] MEDS ORDERED: Calcium Carbonate 500 MG ChewTAB PO PRN (23:49)
[2022-10-15 00:17] LABS: Hemoglobin 6.5 g/dL (12.0-16.0); Platelet Count 378 10x3/uL (130-400)
[2022-10-15 01:01] LABS: PTT Greater than 250.0 sec (22.9-36.1)
[2022-10-15 01:33] VITALS: BMI 25.4
[2022-10-15 03:41] LABS: #Eosinphils 0.1 thou/uL (0.0-0.7); #Monocytes 0.4 thou/uL (0.11-0.59); #Neutrophils 3.4 thou/uL (1.40-6.50); %Basophils 0.3 % (0.0-1.0); %Eosinophils 1.8 % (0.0-10.0); %Lymphocytes 34.3 % (21.0-51.0); %Monocytes 6.9 % (0.0-10.0); %Neutrophils 56.4 % (42.0-75.0); Hemoglobin 6.7 g/dL (12.0-16.0); Mean Corpuscular HGB CONC 29.4 g/dL (32.0-36.0); Mean Corpuscular Hemoglobin 21.2 pg (27.0-31.0); Mean Corpuscular Volume 72.2 fl (78.0-98.0); Mean Platelet Volume 9.6 fL (7.4-10.4); Platelet Count 372 10x3/uL (130-400); RBC Distribution Width 19.4 % (11.5-14.5); Red Blood Cell (RBC) Count 3.16 mill/uL (4.20-5.40)
[2022-10-15 03:53] LABS: INR-International Normal Ratio 1.4; Prothrombin Time 18.1 sec (12.0-14.7)
[2022-10-15 04:07] LABS: Anion Gap 9 mmol/L (10-20); BUN (Urea Nitrogen) 14 mg/dL (7.0-18.7); Calc. Creatinine Clearance 103 mL/min (70-130); Calcium 8.4 mg/dL (7.8-10.44); Carbon Dioxide 24 mmol/L (22-29); Chloride 109 mmol/L (98-107); Estimated GFR 99; Glucose 88 mg/dL (70-105); Potassium 3.8 mmol/L (3.5-5.1); Sodium 138 mmol/L (136-145); Troponin I 0.097 ng/mL (< 0.028)
[2022-10-15] MEDS ORDERED: Lisinopril 20 MG TAB PO SCH (09:00)
[2022-10-15] MEDS: Famotidine 20 MG TAB PO SCH ×2 (09:54→20:47)
[2022-10-15] MEDS: Nicotine 14 MG PATCH TD SCH (10:52)
[2022-10-15 11:37] LABS: Bilirubin Negative (Negative); Blood, Urine Negative (Negative); CAUTI Indications for Culture Pelvic or flank pain; Clarity Clear (Clear); Glucose, Urine (Dipstick) Normal (Negative); Ketone, Urine Negative (Negative); Leukocyte 25 Leu/uL (Negative); Nitrite 2+ (Negative); Protein, Urine (Dipstick) 10 mg/dL (Neg-Trace); RBC/HPF 0-3 HPF (0-3); Specific Gravity, Urine 1.021 (1.002-1.036); Squamous Epithelial 0-3 HPF (0-3); Urobilinogen Normal mg/dL (Less than 2); pH, Urine 6.5 (5.0-9.0)
[2022-10-15 11:38] LABS: Hemoglobin 8.3 g/dL (12.0-16.0); Platelet Count 393 10x3/uL (130-400)
[2022-10-15 11:38] LABS: Bacteria/HPF 1+ HPF (None Seen)
[2022-10-15 11:39] LABS: Urine Culture Reflex No No
[2022-10-15 12:00] LABS: Iron 136 ug/dL (50-170); Iron Binding Capacity, Total 425 mcg/dL (265-497)
[2022-10-15] MEDS: Acetaminophen 325 MG TAB PO PRN ×2 (12:15→18:41)
[2022-10-15] MEDS: cefTRIAXone\\ROCEPHIN 1 GM in Sodium Chloride 0.9% 100 ML IVPB SCH (15:24)
[2022-10-15] MEDS ORDERED: hydrALAZINE 20 MG/ML VIAL SLOW IVP PRN (16:12)
[2022-10-15] MEDS: Warfarin Sodium 10 MG TAB PO SCH (17:49)
[2022-10-15] MEDS: Lisinopril 20 MG TAB PO SCH (20:45)
[2022-10-16] MEDS: Acetaminophen 325 MG TAB PO PRN ×2 (04:06→07:56)
[2022-10-16 04:52] LABS: Platelet Count 351 10x3/uL (130-400)
[2022-10-16 05:08] LABS: INR-International Normal Ratio 1.2; Prothrombin Time 15.8 sec (12.0-14.7)
[2022-10-16 05:09] LABS: PTT 79.8 sec (22.9-36.1)
[2022-10-16] MEDS: Famotidine 20 MG TAB PO SCH ×2 (07:56→20:44)
[2022-10-16] MEDS: Lisinopril 20 MG TAB PO SCH ×2 (07:57→20:45)
[2022-10-16] MEDS ORDERED: Regadenoson 0.4 MG/5 ML SYRINGE ONE (09:41)
[2022-10-16] MEDS: Nicotine 14 MG PATCH TD SCH (12:24)
[2022-10-16] MEDS ORDERED: Heparin 25,000 units/D5W 500 ML IVPB SCH (15:00)
[2022-10-16] MEDS ORDERED: Heparin 10,000 UNITS/ 10 ML VIAL SLOW IVP SCH (15:00)
[2022-10-16] MEDS: cefTRIAXone\\ROCEPHIN 1 GM in Sodium Chloride 0.9% 100 ML IVPB SCH (15:46)
[2022-10-16] MEDS: Warfarin Sodium 10 MG TAB PO SCH (16:59)
[2022-10-17 05:57] LABS: INR-International Normal Ratio 1.2; PTT 39.1 sec (22.9-36.1); Prothrombin Time 16.1 sec (12.0-14.7)
[2022-10-17] MEDS: Famotidine 20 MG TAB PO SCH (08:10)
[2022-10-17] MEDS: Lisinopril 20 MG TAB PO SCH (08:11)
[2022-10-17] MEDS ORDERED: Iron, Sodium Ferric Gluconate 250 MG in Sodium Chloride 0.9% 250 ML 250 ML IVPB SCH (13:00)
[2022-10-17] MEDS: cefTRIAXone\\ROCEPHIN 1 GM in Sodium Chloride 0.9% 100 ML IVPB SCH (14:07)
[2022-10-17] MEDS: Warfarin Sodium 10 MG TAB PO SCH (16:23)
[2022-10-17 16:41] VITALS: BP 161/93; TEMP 97.4
== END 2022-10-17 17:07 | disposition home or self-care (01) | DRG 812 ==
LOC: ERS 17:08 → 2SW 22:38 → OBSVTOIN 10-15 16:12
PROVIDERS: ADMIT Internal Medicine; ATTEND Family Medicine
PROC: 30233N1 Transfusion of Nonautologous Red Blood Cells into Peripheral Vein, Percutaneous Approach (ICD-10-PCS; principal; 2022-10-15)
DX: D64.9 Anemia, unspecified (principal); T82.897A Other specified complication of cardiac prosthetic devices, implants and grafts, initial encounter; I24.8 Other forms of acute ischemic heart disease; R07.89 Other chest pain; I10 Essential (primary) hypertension; F17.210 Nicotine dependence, cigarettes, uncomplicated; Y83.8 Other surgical procedures as the cause of abnormal reaction of the patient, or of later complication, without mention of misadventure at the time of the procedure; N92.0 Excessive and frequent menstruation with regular cycle; Z79.01 Long term (current) use of anticoagulants; Z79.899 Other long term (current) drug therapy
CPT/HCPCS: 36415; 36430; 71045; 78452; 80048; 80053; 81001; 82553; 82607; 82728; 83051; 83540; 83550; 83615; 83690; 84484; 85014; 85018; 85025; 85046; 85049; 85060; 85610; 85730; 86850; 86900; 86901; 93005; 93017; 93306; 96365; 96375; 96376; A9500; G0378; J0360; J0696; J1644; J1650; J2785; J2916; J3490; J7050; P9016

== ENCOUNTER 2022-11-10 09:41 | Emergency (ER) | payer SELFPAY ==
[2022-11-10 11:14] LABS: #Eosinphils 0.1 thou/uL (0.0-0.7); #Monocytes 0.3 thou/uL (0.11-0.59); #Neutrophils 3.2 thou/uL (1.40-6.50); %Basophils 0.6 % (0.0-1.0); %Eosinophils 1.2 % (0.0-10.0); %Lymphocytes 26.8 % (21.0-51.0); %Monocytes 5.7 % (0.0-10.0); %Neutrophils 65.5 % (42.0-75.0); Hematocrit 29.1 % (36.0-47.0); Hemoglobin 8.6 g/dL (12.0-16.0); Mean Corpuscular HGB CONC 29.6 g/dL (32.0-36.0); Mean Corpuscular Hemoglobin 23.6 pg (27.0-31.0); Mean Corpuscular Volume 79.7 fl (78.0-98.0); Mean Platelet Volume 9.2 fL (7.4-10.4); Platelet Count 307 10x3/uL (130-400); RBC Distribution Width 26.1 % (11.5-14.5); Red Blood Cell (RBC) Count 3.65 mill/uL (4.20-5.40); White Blood Cell (WBC) Count 4.9 10x3/uL (4.8-10.8)
[2022-11-10 11:29] LABS: INR-International Normal Ratio 1.6; Prothrombin Time 20.1 sec (12.0-14.7)
[2022-11-10 11:31] LABS: PTT 41.4 sec (22.9-36.1)
[2022-11-10 11:33] LABS: Hypochromia SLIGHT = 6-15 cells (100X) (0-5/hpf)
[2022-11-10 11:34] LABS: Anisocytosis MODERATE=16-30 cells (100X) (0-5/hpf); Platelet Adequacy Comment Appears Adequate; Polychromasia SLIGHT = 2-3 cells (100X) (0-2/hpf)
[2022-11-10 11:36] LABS: Troponin I 0.024 ng/mL (< 0.028)
[2022-11-10 11:43] LABS: SARS-CoV-2 NAA Rapid Test Not Detected (NotDetected)
[2022-11-10 11:48] LABS: Albumin 3.4 g/dL (3.5-5.0)
[2022-11-10 11:50] LABS: Calcium 8.5 mg/dL (7.8-10.44); Chloride 107 mmol/L (98-107); Potassium 3.9 mmol/L (3.5-5.1); Sodium 136 mmol/L (136-145)
[2022-11-10 11:51] LABS: Globulin 3.8 g/dL (2.4-3.5); Glucose 85 mg/dL (70-105); Protein, Total 7.2 g/dL (6.0-8.3)
[2022-11-10 11:52] LABS: Anion Gap 10 mmol/L (10-20); Carbon Dioxide 23 mmol/L (22-29)
[2022-11-10 11:53] LABS: Bilirubin, Total 0.2 mg/dL (0.2-1.2)
[2022-11-10 11:54] LABS: Alkaline Phosphatase 59 U/L (40-110); Calc. Creatinine Clearance 0 mL/min (70-130); Estimated GFR 103
[2022-11-10 11:55] LABS: BUN (Urea Nitrogen) 12 mg/dL (7.0-18.7)
[2022-11-10 11:56] LABS: AST (SGOT) 15 U/L (5-34)
[2022-11-10 11:57] LABS: ALT (SGPT) 13 U/L (8-55)
== END 2022-11-10 12:22 | disposition home or self-care (01) ==
LOC: ERS 09:41
DX: M62.81 Muscle weakness (generalized) (principal); R79.1 Abnormal coagulation profile; I10 Essential (primary) hypertension; F17.210 Nicotine dependence, cigarettes, uncomplicated; Z79.01 Long term (current) use of anticoagulants; Z79.899 Other long term (current) drug therapy; Z20.822 Contact with and (suspected) exposure to COVID-19
CPT/HCPCS: 36415; 80053; 84484; 85025; 85610; 85730; U0002

== ENCOUNTER 2022-12-25 18:04 | Emergency (ER) | payer SELFPAY ==
[2022-12-25] MEDS ORDERED: Acetaminophen 500 MG TAB ONE (18:50)
[2022-12-25 19:27] LABS: SARS-CoV-2 NAA Rapid Test Not Detected (NotDetected)
== END 2022-12-25 19:37 | disposition home or self-care (01) ==
LOC: ERS 18:04
DX: B34.9 Viral infection, unspecified (principal); I10 Essential (primary) hypertension; F17.210 Nicotine dependence, cigarettes, uncomplicated; Z20.822 Contact with and (suspected) exposure to COVID-19
CPT/HCPCS: 99283

== ENCOUNTER 2023-03-21 10:34 | Emergency (ER) | payer SELFPAY | END 2023-03-21 10:59 | disposition home or self-care (01) | LOC: ERS 10:34 | DX: H10.9 Unspecified conjunctivitis (principal); I10 Essential (primary) hypertension; Z79.899 Other long term (current) drug therapy; F17.210 Nicotine dependence, cigarettes, uncomplicated | CPT/HCPCS: 99283 ==

== ENCOUNTER 2023-06-05 18:08 | Emergency (ER) | payer OTHER ==
[2023-06-05] MEDS ORDERED: HYDROcodone/Acetaminophen 10/325 mg Tablet ONE (21:31)
== END 2023-06-05 21:37 | disposition home or self-care (01) ==
LOC: ERS 18:08
DX: K04.7 Periapical abscess without sinus (principal); I10 Essential (primary) hypertension; F17.210 Nicotine dependence, cigarettes, uncomplicated; Z79.899 Other long term (current) drug therapy; Z79.01 Long term (current) use of anticoagulants
CPT/HCPCS: 99282